=== PATIENT | male | born 1965 | race Caucasian/White ===

== ENCOUNTER 2017-04-16 13:30 | Inpatient (IN) | payer OTHER ==
[~2017-04-16] VITALS: Ht 152.4 cm; Wt 104.3 kg
[2017-04-16] MEDS ORDERED: DIOVAN HCT 1601 EACH PO (15:33)
[2017-04-16] MEDS ORDERED: FORTAMET1000 MG PO (15:34)
[2017-04-23] MEDS ORDERED: COLACE100 MG PO (09:30)
[2017-04-23] MEDS ORDERED: PERCOCET 5-3251 EACH PO (09:30)
[2017-04-23] MEDS ORDERED: CLONAZEPAM1 MG PO (09:30)
== END 2017-04-24 16:37 | disposition home or self-care (01) | DRG 472 ==
LOC: EDSEX 04-23 05:00 → PED 04-23 05:00 → O/R 04-23 05:00 → SURH 04-23 07:00 → PED 04-23 10:51 → O/R 04-23 10:51 → SURH 04-23 13:30 → PED 04-23 20:17
PROVIDERS: Orthopaedic Surgery Orthopaedic Surgery of the Spine
PROC: 0RG20A0 Fusion of 2 or more Cervical Vertebral Joints with Interbody Fusion Device, Anterior Approach, Anterior Column, Open Approach (ICD-10-PCS; 2017-04-23)
PROC: 0RT30ZZ Resection of Cervical Vertebral Disc, Open Approach (ICD-10-PCS; principal; 2017-04-23 07:00)
DX: M47.12 Other spondylosis with myelopathy, cervical region (principal); M50.022 Cervical disc disorder at C5-C6 level with myelopathy; I10 Essential (primary) hypertension; E11.9 Type 2 diabetes mellitus without complications